=== PATIENT | male | born 1970 | race Caucasian/White ===

== ENCOUNTER → 2019-04-17 | Day surgery (SDC) | payer OTHER ==
[~2019-04-17] MED LIST: ALFU10TA PO; ASPI81TA59 PO; CETI10TA24 PO; CLOP75TA PO; HYDROmorphone 2 MG/ML VIAL IV PRN; IV RINGERS,LACTATED 1000ML 1,000 ML IV SCH; LIDOCAINE 1% PF 2 ML VIAL. ID PRN; LIDOCAINE 2% PF 5 ML VIAL. ONE; LIPITOR80 MG PO; MONT10TA49 PO; MORPHINE SULFATE 2 MG/ML VIAL. IV PRN; ONDANSETRON PF 4 MG/2 ML VIAL. IV PRN; PROCHLORPERAZINE 10 MG/2 ML VIAL. IV PRN; PROPOFOL 60 ML IV ONE; fentaNYL PF VIAL 100 MCG/2 ML VIAL IV PRN
--- NOTE | 2019-04-17 13:14 | PDOC4 ---
PROCEDURE Procedure Colon/biopsy Indication: screening Meds: per anesthesia Findings: LIZ normal. 2mm rectal polyp, biopsied off. Internal hemorrhoids.\ Cintia. well. IMP: rectal polyp Small internal hemorrhoids. REC: Await histology. Resume diet and meds. F/u in 2 weeks. Repeat exam in 5 years. ZAMZAM ENGLISH MD Apr 17, 2019 13:14
[2019-04-17 13:50] VITALS: BP 102/69
--- NOTE | 2019-04-19 15:07 | PATHOLOGY ---
[facility] Accession Number: [id number] . 01 Material submitted: . rectum - RECTAL POLYP . 01 Clinical history: . CRCS . 02 Diagnosis: Colorectal biopsy, rectal polyp: - Hyperplastic polyp, with mild chronic inflammation. . (JP:mm; 04/19/2019) [facility] 04/19/2019 0946 Local . 02 Comment: There are no adenomatous changes or evidence of malignancy. . (JP:mml; 04/19/2019) . 02 Electronically signed: . Osvaldo Jones MD, Pathologist NPI- [id number] . 01 Gross description: . Received in formalin labeled "Orestes Sepulveda Jr, rectal polyp," is a single segment of caruso soft tissue measuring 0.2 cm in maximum dimension. The specimen is entirely submitted in cassette A1. (TSD; 04/18/2019) TOB/TOB 04/19/2019 0944 Local . 02 Pathologist provided ICD-10: K62.1 . 02 CPT . 627298 Specimen Comment: A courtesy copy of this report has been sent to [phone], [phone] Specimen Comment: [id number] Specimen Comment: Report sent to / DR COREA Performed at: 01 [facility] [address], [place] [id number] MD Olu Gonzalez MD Phone: [phone] Performed at: 02 [facility] [place] [address] [place], [place] [id number] MD Osvaldo Jones MD Phone: [phone]
== END ==
LOC: ENDOS 12:12
PROVIDERS: ATTEND Internal Medicine Gastroenterology
DX: Z12.11 Encounter for screening for malignant neoplasm of colon (principal); K62.1 Rectal polyp; K64.0 First degree hemorrhoids; E78.00 Pure hypercholesterolemia, unspecified; I25.2 Old myocardial infarction; G47.30 Sleep apnea, unspecified; F15.90 Other stimulant use, unspecified, uncomplicated; Z88.8 Allergy status to other drugs, medicaments and biological substances; Z85.828 Personal history of other malignant neoplasm of skin; Z72.89 Other problems related to lifestyle; Z79.82 Long term (current) use of aspirin; Z98.52 Vasectomy status
CPT/HCPCS: 45380; J2001; J2704